=== PATIENT | male | born 1955 | race Hispanic/Latino ===

== ENCOUNTER 2017-04-09 16:04 | Day surgery (SDC) | payer OTHER ==
[~2017-04-09 16:04] MED LIST: NACL 0.9% 1000 ML 1,000 ML IV SCH; PEPCID PO NR; VERSED IV NR
[2017-04-09] MEDS ORDERED: ZOFRAN ONE (17:00)
[2017-04-09] MEDS ORDERED: DECADRON ONE (17:00)
[2017-04-09] MEDS ORDERED: SUBLIMAZE ONE (17:52)
[2017-04-09] MEDS ORDERED: XYLOCAINE MPF 2% ONE (17:53)
[2017-04-09] MEDS ORDERED: NACL BACTERIOSTATIC INFILTRATI ONE (17:56)
[2017-04-09] MEDS ORDERED: PEPCID PO NR (18:00)
[2017-04-09] MEDS ORDERED: ANCEF/STERILE WATER 2 GM/20 ML IV NR (18:00)
[2017-04-09] MEDS ORDERED: MORPHINE IV PRN (18:13)
[2017-04-09] MEDS ORDERED: ZOFRAN IV PRN (18:13)
[2017-04-09] MEDS ORDERED: PERCOCET 5/325 PO PRN (18:13)
--- NOTE | 2017-04-09 18:13 | Anesthesia Day of Surgery ---
Anesthesia Day of Surgery - Day of Surgery Patient Examined: Yes Patient is NPO: Yes
--- NOTE | 2017-04-09 18:13 | Anesthesia Consultation ---
Anesthesia Consult and Med Hx Date of service: 04/09/17 - Airway Anesthetic Teeth Evaluation: Good, Chipped (top front tooth) ROM Head & Neck: Adequate Mental/Hyoid Distance: Adequate Mallampati Class: Class II Intubation Access Assessment: Probably Good - Pulmonary Exam CTA: Yes - Cardiac Exam Cardiac Exam: RRR - Pre-Operative Health Status ASA Pre-Surgery Classification: ASA2 Proposed Anesthetic Plan: General - Pulmonary Hx Smoking: Yes (STOPPED X 15 YRS , 1 1/2 PPD X 12 YRS) Hx Sleep Apnea: Yes (DX SLEEP APNEA WITH CPAP USE.) - Cardiovascular System Hx Hypertension: No - Other Systems Hx Cancer: No Hx Obesity: Yes - Additional Comments Anesthesia Medical History Comments: "difficult to wake up"
[2017-04-09] MEDS ORDERED: DIPRIVAN 10 MG/ML IV ONE (18:16)
[2017-04-09] MEDS ORDERED: ROBINUL ONE (18:57)
[2017-04-09] MEDS ORDERED: NACL 0.9% 1000 ML 1,000 ML ONE (18:57)
--- NOTE | 2017-04-09 19:00 | Short Stay Summary ---
Short Stay Documentation Date of service: 04/09/17 Narrative H&P: 61 yr old male with rt flank pain CTAP 6mm rt kdiney stone options dicussed---proceed with ESWL - History Past Medical History: hyperlipidemia Past Surgical History: No surgical history Social history: no significant social history - Allergies and Medications Current Medications: Allergies No Known Allergies Allergy (Verified 04/08/17 15:10) Home Medications Medication Instructions Recorded Confirmed Last Taken Type Simvastatin [Zocor TAB] 40 mg PO QHS 04/08/17 04/09/17 2 Days Ago History ~04/07/17 Testosterone [Androgel] 2.5 gm TD DAILY 04/08/17 04/09/17 2 Days Ago History ~04/07/17 Active Medications Cefazolin Sodium (Ancef/Sterile Water 2 Gm/20 Ml) 2 gm IV PREOP NR Stop: 04/09/17 23:59 Famotidine (Pepcid) 20 mg PO PREOP NR Stop: 04/09/17 23:59 Last Admin: 04/09/17 17:51 Dose: 20 mg Sodium Chloride (Nacl 0.9% 1000 Ml) 1,000 mls @ 75 mls/hr IV DIRECT IRVIN Last Admin: 04/09/17 18:00 Dose: 75 mls/hr Midazolam HCl (Versed) 2 mg IV PREOP NR Stop: 04/09/17 23:59 Morphine Sulfate (Morphine) 2 mg IV Q10MIN PRN PRN Reason: Pain, Moderate (4-6) Ondansetron HCl (Zofran) 4 mg IV ONCE PRN PRN Reason: Nausea And Vomiting Oxycodone/Acetaminophen (Percocet 5/325) 1 tab PO ONCE PRN PRN Reason: Pain, Moderate (4-6) - Physical exam General appearance: well-nourished Integumentary: no rash, no growths HEENT: Atraumatic, PERRLA Lungs: Clear to auscultation Breasts: deferred Heart: Regular rate, No murmurs Gastrointestinal: normal Male Genitourinary: deferred Rectal Exam: deferred Extremities: No edema Neurological: Normal gait - Brief post op/procedure progress note Date of procedure: 04/09/17 Pre-op diagnosis: rt renal stone ----6mm Post-op diagnosis: same Procedure: rt eswl Anesthesia: GETA Surgeon: JUAN MORILLO Estimated blood loss: none Pathology: none Condition: stable - Hospital course Hospital course: percocet & post op info - Disposition Condition at discharge: Stable Disposition: DC-01 TO HOME OR SELFCARE Short Stay Discharge Plan Follow up with: FRANSICO MONAE MD [Primary Care Provider] - 7 Days
[2017-04-09 20:17] VITALS: BP 115/68
--- NOTE | 2017-04-09 20:30 | Operative Report ---
PREOPERATIVE DIAGNOSIS: Right renal stone, 6 mm. POSTOPERATIVE DIAGNOSIS: Right renal stone, 6 mm. PROCEDURE: Extracorporal shock wave lithotripsy. SURGEON: Toby Esquivel MD ANESTHESIA: General. ANESTHESIOLOGIST: Dr. Dai ESTIMATED BLOOD LOSS: Minimal. FLUIDS: Crystalloid. COMPLICATIONS: No complications. INDICATIONS: This 61-year-old gentleman seen in the office by Dr. Wharton for right flank pain. CT of abdomen and pelvis revealed a 6 mm right renal stone. Options were discussed. He agreed to proceed with surgical intervention. DESCRIPTION OF PROCEDURE: The patient was taken to the operative suite, placed in a supine position. After adequate general anesthesia, his 6 mm stone was localized in the renal pelvis under fluoroscopy. Extracorporal shock wave lithotripsy was administered with a maximum kV of 5 and 2500 shocks. Adequate fragmentation could be appreciated. He tolerated the procedure well. Renal pause after 200 shocks was performed. The patient was extubated and taken to recovery room in stable condition. He will go home on Percocet. Follow up in the office. JOB# [id number] [facility]
== END 2017-04-09 16:05 | disposition home or self-care (01) ==
LOC: OR 16:04
PROVIDERS: ATTEND Urology
DX: N20.0 Calculus of kidney (principal); E78.5 Hyperlipidemia, unspecified; G47.33 Obstructive sleep apnea (adult) (pediatric); E66.9 Obesity, unspecified; Z68.30 Body mass index [BMI] 30.0-30.9, adult; Z99.89 Dependence on other enabling machines and devices; Z87.891 Personal history of nicotine dependence
CPT/HCPCS: 50590; J0690; J1100; J2405; J2704; J3010; J7030; J2250